=== PATIENT | female | born 1965 | race Caucasian/White ===

== ENCOUNTER 2017-07-08 18:37 | Emergency (ER) | payer SELFPAY ==
--- NOTE | 2017-07-08 18:53 | ED Physician Chart ---
ED Chief Complaint/HPI - Patient Information Date Seen:: 07/08/17 Time Seen:: 18:47 Chief Complaint:: Right leg pain History of Present Illness:: 51 yo female had intermittent right sciatica for 8 years. The most recent episode happened 2 weeks ago and the pain was in the right buttock and right leg. However, the pain in the right buttock subsided today and the pain in the right leg particularly in the right calf worsened. It was throbbing pain, 7/10. Occasionally there was numbness tingling in the right foot. She denied any weakness of the RLE. ED Review of Systems - Review of Systems General/Constitutional: No fever Skin: No bruising Head: No headache Eyes: No pain ENT: No nasal drainage Neck: No neck pain Cardio Vascular: No chest pain Pulmonary: No SOB GI: No vomiting Musculoskeletal: Back pain Neurological: Paresthesia ED Past Medical History - Past Medical History Past Medical History: Other (right sciatica) Social History: Non Smoker, Alcohol, Illicit Drug Use (marijuana) Surgical History: Cholecystectomy Family Medical History - Family Member Father Ethnicity: Living Status: Still Living Hx Family Hypertension: Yes ED Physical Exam - Physical Examination General/Constitutional: Awake Head: Atraumatic Eyes: PERRL Skin: No ecchymosis ENMT: Nasal exam nl Neck: No nuchal rigidity Respiratory: No Wheeze/Rhonchi/Rales Cardio Vascular: RRR, No murmur, gallop, rubs, NL S1 S2 GI: No tenderness/rebounding/guarding Other Extremities comments:: Tenderness in right posterior thigh, popliteal and calf. Neuro/Psych: Alert/oriented ED Labs/Radiology/EKG Results - Radiology Results Results: Lumbar spine X ray: unremarkable RLE doppler u/s: negative for DVT ED Assessment - Assessment General Assessment: Lumbago Lumbar radiculopathy Microcytic anemia Assessment/Comments:: CBC, CMP RLE venous u/s D-dimer negative L-spine X ray Toradol 30mg IM Gabapentin 300mg PO D/c home Gabapentin 300mg tid F/u PCP for physical therapy and possible L-spine MRI ED Septic Shock - . Is Septic Shock (SBP<90, OR Lactate>4 mmol\L) present?: No ED Reassessment (Disposition) - Reassessment Reassessment Condition:: Improved - Patient Disposition Discharge/Transfer:: Home ED Discharge Plan - Patient Disposition Admit/Discharge/Transfer: PT DISCHARGED HOME Condition at Disposition: Stable Prescriptions: Gabapentin [Neurontin*] 300 mg PO TID #60 cap Instructions: Sciatica, [id number] Additional Instructions: FOLLOW UP WITH [facility] IN 2-3 DAYS AND TAKE THE MEDICATION PRESCRIBED
[2017-07-08 20:29] LABS: % BASOPHILS 0.6 % (0.0-2.0); % MONOCYTES 6.9 % (2.0-10.0); % NEUTROPHILS 62.5 % (40.0-80.0); BASOPHILE ABSOLUTE 0.1 Th/cumm (0-0.2); EOSINOPHILE ABSOLUTE 0.2 Th/cmm (0.1-0.4); HEMATOCRIT 33.7 % (41.0-60); HEMOGLOBIN 11.3 gm/dL (12-16); LYMPHOCYTE ABSOLUTE 2.5 Th/cmm (1.5-3.0); MEAN CELL VOLUME 76.9 fl (81-100); MEAN CORPUSCULAR HEMOGLOBIN 25.7 pg (27.0-31.0); MEAN CORPUSCULAR HGB CONC 33.4 pg (28.0-36.0); MEAN PLATELET VOLUME 8.5 fl; MONOCYTE ABSOLUTE 0.6 Th/cmm (0.3-1.0); NEUTROPHILE ABSOLUTE 5.6 Th/cmm (1.8-8.0); PLATELET COUNT 281 Th/cmm (150-400); RED BLOOD COUNT 4.38 Mil/cmm (3.80-5.10); RED CELL DISTRIBUTION WIDTH 15.7 % (11.5-20.0)
[2017-07-08 20:41] LABS: INR 0.96 (0.5-1.4)
[2017-07-08 20:45] LABS: ALB/GLOB RATIO 1.4 (1.0-1.8); ALBUMIN 3.8 gm/dL (3.7-5.3); ALKALINE PHOSPHATASE 68 U/L (34-104); BILIRUBIN,TOTAL 0.3 mg/dL (0.3-1.0); BUN - UREA NITROGEN 19 mg/dL (7-25); CARBON DIOXIDE 25.8 mEq/L (21.0-31.0); CHLORIDE 107 mEq/L (98-107); CREATININE - SERUM 0.6 mg/dL (0.6-1.2); GFR AFRICAN-AMERICAN > 60.0 ml/min (>90); GFR NON AFRICAN-AMERICAN > 60.0 ml/min; GLUCOSE 115 mg/dL (70-105); POTASSIUM SERUM 3.8 mEq/L (3.5-5.1); SGOT 10 U/L (13-39); SGPT/ALT 9 U/L (7-52); SODIUM SERUM 138 mEq/L (136-145); TOTAL PROTEIN,SERUM 6.6 gm/dL (6.0-8.3)
--- NOTE | 2017-07-09 07:59 | Diagnostic Imaging Report ---
Exam: Right lower extremity deep venous ultrasound. HISTORY: Right lower extremity pain. Findings: Real-time ultrasound examination right lower extremity performed multiple planes utilizing color Doppler technique. The study demonstrates normal augmentation and compressibility of the deep venous system of right lower extremity. IMPRESSION: No evidence for deep venous thrombosis right lower extremity.
--- NOTE | 2017-07-09 08:01 | Diagnostic Imaging Report ---
Exam: Lumbar sacral spine HISTORY: Low back pain right leg pain COMPARISON: None FINDINGS: Multiple views of lumbar sacral spine reviewed. The study demonstrates vertebral bodies of normal height with preserved intervertebral disc spaces. There is no evidence of fracture or dislocation. There is no evidence of spondylolysis or spondylolisthesis. No prevertebral soft tissue swelling is noted. The pedicles are intact. IMPRESSION: Normal examination of lumbar sacral spine. Clinical correlation and MRI examination might be helpful.
== END 2017-07-08 22:50 | disposition home or self-care (01) ==
LOC: ER 18:37
DX: M79.604 Pain in right leg (principal)
CPT/HCPCS: 99285; 96372; 93971; 72110; 36415; 85379; 85025; 85610; 81025; 80053; J1885